=== PATIENT | female | born 1980 | race American Indian/Alaskan Native ===

== ENCOUNTER 2018-08-03 19:35 | Emergency (ER) | payer BC ==
--- NOTE | 2018-08-03 19:52 | Emergency Department Report ---
Blank Doc - Documentation Documentation: This is a 38-year-old female that presents with left lower pelvic pain. Denies any n/v. This initial assessment/diagnostic orders/clinical plan/treatment(s) is/are subject to change based on patient's health status, clinical progression and re- assessment by fellow clinical providers in the ED. Further treatment and workup at subsequent clinical providers discretion. Patient/guardians urged not to elope from the ED as their condition may be serious if not clinically assessed and managed. Initial orders include: 1- Patient sent to [facility] for further evaluation and treatment. 2- labs 3- UA
[2018-08-03 20:36] LABS: Bilirubin,Urine NEG (Negative); Blood,Urine NEG (Negative); Color,Urine Yellow (Yellow); Protein,Urine <15 mg/dL mg/dL (Negative); Urobilinogen,Urine < 2.0 mg/dL (<2.0); WBC,Urine < 1.0 /HPF (0.0-6.0)
[2018-08-03 20:56] LABS: Basophils # (Auto) 0.1 K/mm3 (0.0-0.1); Eosinophils # (Auto) 0.1 K/mm3 (0.0-0.4); Eosinophils % (Auto) 1.3 % (0.0-4.3); Hematocrit 33.7 % (30.3-42.9); Hemoglobin 11.1 gm/dl (10.1-14.3); Lymphocytes # (Auto) 2.5 K/mm3 (1.2-5.4); Lymphocytes % (Auto) 45.3 % (13.4-35.0); Mean Corpuscular HGB Conc 33 % (30-34); Mean Corpuscular Volume 77 fl (79-97); Monocytes # (Auto) 0.4 K/mm3 (0.0-0.8); Monocytes % (Auto) 7.4 % (0.0-7.3); Platelet Count 318 K/mm3 (140-440); Red Blood Count 4.36 M/mm3 (3.65-5.03); Red Cell Distribution Width 15.2 % (13.2-15.2)
[2018-08-03] MEDS ORDERED: ZOFRAN IM ONE (21:06)
[2018-08-03] MEDS ORDERED: MORPHINE IM ONE (21:06)
[2018-08-03 21:07] LABS: Alanine Aminotransferase 19 units/L (7-56); Albumin 4.5 g/dL (3.9-5); BUN/Creatinine Ratio 11; Blood Urea Nitrogen 9 mg/dL (7-17); Calcium 9.7 mg/dL (8.4-10.2); Hemolysis Index 7
[2018-08-03 21:12] LABS: Bilirubin,Direct < 0.2 mg/dL (0-0.2)
--- NOTE | 2018-08-03 23:17 | Ultrasound Report ---
PROCEDURE: US OB <= 14 WEEKS FETUS TECHNIQUE: Real-time transabdominal and transvaginal sonography of the uterus, placenta, amniotic fl uid, adnexa, and fetus was performed with image documentation. Measurements were obtained to determin e age/size. M-mode Doppler was used to document heartbeat. ADDITIONAL GESTATION: None. HISTORY: left pelvic pain COMPARISONS: None . FINDINGS: The uterus is enlarged measuring 13.8 x 6.9 x 8.9 cm. The endometrial pattern is normal measuring 9 m m. Is no evidence of an intrauterine . Multiple fibroids are identified within the uterine m yometrium. There are at least 3 large fibroid. One measures 33 x 26 x 39 mm. A second measures 30 x 3 1 x 29 mm. A third measures 32 x 28 x 27 mm. The ovaries are not identified on this study. There is no evidence of fluid in the lower pelvis. Ther e are a few small cysts identified within the cervix. The findings may indicate multiple etiologies including early or failure. The pat ient should have follow-up studies which could include serial beta-hCG levels and perhaps repeat ultr asound. IMPRESSION: Enlarged uterus with multiple fibroids identified within the myometrium. The fibroids measure up to 3 9 mm. There is no evidence of a gestational sac on this study. The ovaries are not seen on this exami nation. The findings may indicate early or failure. Follow-up studies should be entertain ed as discussed above. This document is electronically signed by Shelbie Grajeda DO., Aug 03 2018 11:15:28 PM ET
[2018-08-04] MEDS ORDERED: TYLENOL PO ONE (00:44)
[2018-08-04 00:52] VITALS: BP 139/87
--- NOTE | 2018-08-04 01:00 | Emergency Department Report ---
ED Female HPI - General Chief complaint: Abdominal Pain Stated complaint: LEFT SIDE PAIN Time Seen by Provider: 08/03/18 19:51 Source: patient Mode of arrival: Ambulatory Limitations: No Limitations - History of Present Illness Initial comments: 38-year-old female with a past medical history of hypertension and SVT presents to the hospital. No lower abdominal pain radiating to the back intermittently since yesterday. Pain was initially dull but now sharp and more severe today. Worse with palpation. No alleviating factors. Positive nausea without vomiting. Patient complains of urinary frequency but denies hematuria, dysuria, or vaginal bleeding. LMP June 29. It is the patient's third and she has 2 previous miscarriages and denies abortions or ectopic pregnancies. Pt is also on medication for rprolactinoma - Related Data Home Medications Medication Instructions Recorded Confirmed Last Taken Atenolol [Tenormin] 1 tab PO QDAY 08/08/13 08/08/13 Unknown hydroCHLOROthiazide [Hctz] 1 tab PO QDAY 08/08/13 08/08/13 08/07/13 Previous Rx's Medication Instructions Recorded Last Taken Type Cyclobenzaprine [Flexeril] 10 mg PO TID PRN #10 tablet 08/08/13 Unknown Rx Oxycodone HCl/Acetaminophen 1 each PO Q6HR PRN #20 tablet 08/08/13 Unknown Rx [Percocet 10-325 mg] Ondansetron [Zofran Odt] 4 mg PO Q8HR PRN #14 tab.rapdis 08/04/18 Unknown Rx Allergies Allergy/AdvReac Type Severity Reaction Status Date / Time cefuroxime [From Ceftin] Allergy Swelling Verified 08/03/18 19:39 ED Review of Systems ROS: Stated complaint: LEFT SIDE PAIN Other details as noted in HPI Comment: All other systems reviewed and negative ED Past Medical Hx - Past Medical History Hx Hypertension: Yes Additional medical history: SVT - Surgical History Additional Surgical History: myomectomy. dx lap. dx D & C - Social History Smoking Status: Never Smoker Substance Use Type: None - Medications Home Medications: Home Medications Medication Instructions Recorded Confirmed Last Taken Type Atenolol [Tenormin] 1 tab PO QDAY 08/08/14 08/08/13 Unknown History Cyclobenzaprine [Flexeril] 10 mg PO TID PRN #10 tablet 08/08/13 Unknown Rx Oxycodone HCl/Acetaminophen 1 each PO Q6HR PRN #20 tablet 08/08/13 Unknown Rx [Percocet 10-325 mg] hydroCHLOROthiazide [Hctz] 1 tab PO QDAY 08/08/13 08/08/13 08/07/13 History Ondansetron [Zofran Odt] 4 mg PO Q8HR PRN #14 tab.rapdis 08/04/18 Unknown Rx ED Physical Exam - General Limitations: No Limitations - Other Other exam information: General: No limitations, patient is alert in no acute distress Head exam: Atraumatic, normocephalic Eyes exam: Normal appearance ENT: Moist mucous membrane Neck exam: Normal inspection, full range of motion, no meningismus nontender Respiratory exam: Clear to auscultation bilateral, no wheezes, rales, crackles Cardiovascular: Normal rate and rhythm, normal heart sounds Abdomen: Soft, nondistended, left lower quadrant tenderness and suprapubic tenderness, with normal bowel sounds, no rebound, or guarding Extremity: Full range of motion normal inspection no deformity Back: Normal Inspection, full range of motion, no tenderness, no CVA tenderness Neurologic: Alert, oriented x3, cranial nerves intact, no motor or sensory deficit Psychiatric: normal affect, normal mood Skin: Warm, dry, intact ED Course Vital Signs 08/03/18 08/03/18 08/03/18 19:38 19:40 19:55 Temperature 97.9 F 97.9 F 97.9 F Pulse Rate 92 H 84 84 Respiratory 18 18 18 Rate Blood Pressure 148/104 148/104 Blood Pressure 148/104 [Right] O2 Sat by Pulse 95 97 97 Oximetry 08/03/18 08/03/18 08/04/18 21:25 21:55 00:51 Temperature 98.1 F Pulse Rate 69 Respiratory 18 18 15 Rate Blood Pressure Blood Pressure 139/87 [Right] O2 Sat by Pulse 100 Oximetry - Consultations Consultation #1: 08/04/18 01:03 case d/w Dr Pereira who agrees that pt will need repeat hcg in 2 days. ED Medical Decision Making - Lab Data Result diagrams: 08/03/18 20:23 08/03/18 20:23 Lab Results 08/03/18 08/03/18 08/03/18 Range/Units 20:11 20:23 20:23 WBC 5.5 (4.5-11.0) K/mm3 RBC 4.36 (3.65-5.03) M/mm3 Hgb 11.1 (10.1-14.3) gm/dl Hct 33.7 (30.3-42.9) % MCV 77 L (79-97) fl MCH 25 L (28-32) pg MCHC 33 (30-34) % RDW 15.2 (13.2-15.2) % Plt Count 318 (140-440) K/mm3 Lymph % (Auto) 45.3 H (13.4-35.0) % [place] % (Auto) 7.4 H (0.0-7.3) % Eos % (Auto) 1.3 (0.0-4.3) % Baso % (Auto) 1.0 (0.0-1.8) % Lymph # 2.5 (1.2-5.4) K/mm3 [place] # 0.4 (0.0-0.8) K/mm3 Eos # 0.1 (0.0-0.4) K/mm3 Baso # 0.1 (0.0-0.1) K/mm3 Seg Neutrophils % 45.0 (40.0-70.0) % Seg Neutrophils # 2.5 (1.8-7.7) K/mm3 Sodium 141 (137-145) mmol/L Potassium 4.2 (3.6-5.0) mmol/L Chloride 104.2 (98-107) mmol/L Carbon Dioxide 25 (22-30) mmol/L Anion Gap 16 mmol/L BUN 9 (7-17) mg/dL Creatinine 0.8 (0.7-1.2) mg/dL Estimated GFR > 60 ml/min BUN/Creatinine Ratio 11 % Glucose 141 H (65-100) mg/dL Calcium 9.7 (8.4-10.2) mg/dL Total Bilirubin 0.20 (0.1-1.2) mg/dL Direct Bilirubin < 0.2 (0-0.2) mg/dL Indirect Bilirubin 0.0 mg/dL AST 18 (5-40) units/L ALT 19 (7-56) units/L Alkaline Phosphatase 45 (35-129) units/L Total Protein 7.6 (6.3-8.2) g/dL Albumin 4.5 (3.9-5) g/dL Albumin/Globulin Ratio 1.5 % HCG, Quant (0-4) mIU/mL Urine Color Yellow (Yellow) Urine Turbidity Cloudy (Clear) Urine pH 5.0 (5.0-7.0) Ur Specific [place] 1.017 (1.003-1.030) Urine Protein <15 mg/dl (Negative) mg/dL Urine Glucose (UA) Neg (Negative) mg/dL Urine Ketones Neg (Negative) mg/dL Urine Blood Neg (Negative) Urine Nitrite Neg (Negative) Urine Bilirubin Neg (Negative) Urine Urobilinogen < 2.0 (<2.0) mg/dL Ur Leukocyte Esterase Neg (Negative) Urine WBC (Auto) < 1.0 (0.0-6.0) /HPF Urine RBC (Auto) 4.0 (0.0-6.0) /HPF U Epithel Cells (Auto) 13.0 (0-13.0) /HPF 05/20/19 Range/Units 20:23 WBC (4.5-11.0) K/mm3 RBC (3.65-5.03) M/mm3 Hgb (10.1-14.3) gm/dl Hct (30.3-42.9) % MCV (79-97) fl MCH (28-32) pg MCHC (30-34) % RDW (13.2-15.2) % Plt Count (140-440) K/mm3 Lymph % (Auto) (13.4-35.0) % [place] % (Auto) (0.0-7.3) % Eos % (Auto) (0.0-4.3) % Baso % (Auto) (0.0-1.8) % Lymph # (1.2-5.4) K/mm3 [place] # (0.0-0.8) K/mm3 Eos # (0.0-0.4) K/mm3 Baso # (0.0-0.1) K/mm3 Seg Neutrophils % (40.0-70.0) % Seg Neutrophils # (1.8-7.7) K/mm3 Sodium (137-145) mmol/L Potassium (3.6-5.0) mmol/L Chloride (98-107) mmol/L Carbon Dioxide (22-30) mmol/L Anion Gap mmol/L BUN (7-17) mg/dL Creatinine (0.7-1.2) mg/dL Estimated GFR ml/min BUN/Creatinine Ratio % Glucose (65-100) mg/dL Calcium (8.4-10.2) mg/dL Total Bilirubin (0.1-1.2) mg/dL Direct Bilirubin (0-0.2) mg/dL Indirect Bilirubin mg/dL AST (5-40) units/L ALT (7-56) units/L Alkaline Phosphatase (35-129) units/L Total Protein (6.3-8.2) g/dL Albumin (3.9-5) g/dL Albumin/Globulin Ratio % HCG, Quant 11.70 H (0-4) mIU/mL Urine Color (Yellow) Urine Turbidity (Clear) Urine pH (5.0-7.0) Ur Specific [place] (1.003-1.030) Urine Protein (Negative) mg/dL Urine Glucose (UA) (Negative) mg/dL Urine Ketones (Negative) mg/dL Urine Blood (Negative) Urine Nitrite (Negative) Urine Bilirubin (Negative) Urine Urobilinogen (<2.0) mg/dL Ur Leukocyte Esterase (Negative) Urine WBC (Auto) (0.0-6.0) /HPF Urine RBC (Auto) (0.0-6.0) /HPF U Epithel Cells (Auto) (0-13.0) /HPF - EKG Data -: EKG Interpreted by [place] EKG shows normal: sinus rhythm, axis (qrs 41), QRS complexes (qrsd 89), ST-T waves (no stemi/t wave) Rate: normal (85) - Radiology Data Radiology results: report reviewed PROCEDURE: US OB <= 14 WEEKS FETUS TECHNIQUE: Real-time transabdominal and transvaginal sonography of the uterus, placenta, amniotic fluid, adnexa, and fetus was performed with image documentation. Measurements were obtained to determine age/size. M-mode Doppler was used to document heartbeat. ADDITIONAL GESTATION: None. HISTORY: left pelvic pain COMPARISONS: None . FINDINGS: The uterus is enlarged measuring 13.8 x 6.9 x 8.9 cm. The endometrial pattern is normal measuring 9 mm. Is no evidence of an intrauterine . Multiple fibroids are identified within the uterine myometrium. There are at least 3 large fibroid. One measures 33 x 26 x 39 mm. A second measures 30 x 31 x 29 mm. A third measures 32 x 28 x 27 mm. The ovaries are not identified on this study. There is no evidence of fluid in the lower pelvis. There are a few small cysts identified within the cervix. The findings may indicate multiple etiologies including early or failure. The patient should have follow-up studies which could include serial beta-hCG levels and perhaps repeat ultrasound. IMPRESSION: Enlarged uterus with multiple fibroids identified within the myometrium. The fibroids measure up to 39 mm. There is no evidence of a gestational sac on this study. The ovaries are not seen on this examination. The findings may indicate early or failure. Follow-up studies should be entertained as discussed above. PROCEDURE: US OB TRANSVAGINAL TECHNIQUE: Real-time transabdominal and transvaginal sonography of the uterus, placenta, amniotic fluid, adnexa, and fetus was performed with image documentation. Measurements were obtained to determine age/size. M-mode Doppler was used to document heartbeat. ADDITIONAL GESTATION: None. HISTORY: left pelvic pain COMPARISONS: None . FINDINGS: The uterus is enlarged measuring 13.8 x 6.9 x 8.9 cm. The endometrial pattern is normal measuring 9 mm. Is no evidence of an intrauterine . Multiple fibroids are identified within the uterine myometrium. There are at least 3 large fibroid. One measures 33 x 26 x 39 mm. A second measures 30 x 31 x 29 mm. A third measures 32 x 28 x 27 mm. The ovaries are not identified on this study. There is no evidence of fluid in the lower pelvis. There are a few small cysts identified within the cervix. The findings may indicate multiple etiologies including early or failure. The patient should have follow-up studies which could include serial beta-hCG levels and perhaps repeat ultrasound. IMPRESSION: Enlarged uterus with multiple fibroids identified within the myometrium. The fibroids measure up to 39 mm. There is no evidence of a gestational sac on this study. The ovaries are not seen on this examination. The findings may indicate early or failure. Follow-up studies should be entertained as discussed above. - Medical Decision Making Patient did receive morphine, Zofran, and Tylenol in the ED. No signs of infection on labs or urine. Fibroids on ultrasound with a very low hCG level. Repeat in 2 days recommended. Tylenol when necessary pain. 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 ED Disposition Clinical Impression: Pelvic pain during , Fibroids Disposition: TO HOME OR SELFCARE Is pt being admited?: No Does the pt Need Aspirin: No Condition: Stable Instructions: (ED), Uterine Fibroids (ED) Additional Instructions: Take Tylenol as needed for pain and Zofran as needed for nausea. It is very important that you follow up in 2 days to have the blood work redrawn. Today urine hCG number is 11. This number should double in 2 days. If this level is decreased and then it is likely you're having a miscarriage. You may either follow up with the [facility]RARY CONSULTANT doctor provider or return to the emergency department. Please return if symptoms worsen as indicated by your discharge instructions. You have been provided a copy of the labs and ultrasound report from today's visit. Prescriptions: Ondansetron [Zofran Odt] 4 mg PO Q8HR PRN #14 tab.rapdis PRN Reason: Nausea And Vomiting Referrals: SADAF PEREIRA MD [Staff Physician] - 2-3 Days (2 days) Time of Disposition:
== END 2018-08-04 01:53 | disposition home or self-care (01) ==
LOC: ED 19:35
DX: O34.11 Maternal care for benign tumor of corpus uteri, first trimester (principal); R10.2 Pelvic and perineal pain; O16.1 Unspecified maternal hypertension, first trimester; Z88.8 Allergy status to other drugs, medicaments and biological substances; Z3A.01 Less than 8 weeks gestation of pregnancy
CPT/HCPCS: 36415; 76801; 76817; 80048; 80076; 81001; 84702; 85025; 93005; 93010; 96372; 99284; J2270; J2405

== ENCOUNTER 2018-08-05 04:39 | Emergency (ER) | payer BC ==
[2018-08-05 05:33] LABS: Basophils % (Auto) 0.3 % (0.0-1.8); Eosinophils # (Auto) 0.1 K/mm3 (0.0-0.4); Hematocrit 33.5 % (30.3-42.9); Hemoglobin 10.9 gm/dl (10.1-14.3); Lymphocytes # (Auto) 1.9 K/mm3 (1.2-5.4); Lymphocytes % (Auto) 32.4 % (13.4-35.0); Mean Corpuscular HGB Conc 33 % (30-34); Mean Corpuscular Volume 78 fl (79-97); Monocytes # (Auto) 0.5 K/mm3 (0.0-0.8); Monocytes % (Auto) 8.3 % (0.0-7.3); Platelet Count 300 K/mm3 (140-440); Red Blood Count 4.29 M/mm3 (3.65-5.03); Red Cell Distribution Width 15.4 % (13.2-15.2)
[2018-08-05] MEDS ORDERED: NORCO 5/325 PO ONE (06:42)
--- NOTE | 2018-08-05 06:45 | Emergency Department Report ---
HPI - General Chief Complaint: Vaginal Bleeding Time Seen by Provider: 08/05/18 06:27 - HPI HPI: Room 24 The patient is a 38-year-old female presenting with a chief complaint abdominal pain. The patient states for the past 3 days she is low abdominal pain and back pain. Patient was seen in the ED 2 days ago for the same and diagnosed with probable spontaneous . The patient was instructed to return in 48 hours for repeat labs. The patient states she developed some vaginal bleeding yesterday and has gone through approximately 3 pads today. Location: [See above] Duration: [See above] Quality: [See above] Severity:10/24 Modifying factors: [see above] Context: [see above] Mode of transportation: [not driving] ED Past Medical Hx - Past Medical History Previous Medical History?: Yes Hx Hypertension: Yes Hx Diabetes: Yes Hx Seizures: Yes Additional medical history: SVT - Surgical History Past Surgical History?: Yes Additional Surgical History: myomectomy. dx lap. dx D & C - Family History Family history: no significant - Social History Smoking Status: Never Smoker Substance Use Type: None (denies illicit drug use) - Medications Home Medications: Home Medications Medication Instructions Recorded Confirmed Last Taken Type Atenolol [Tenormin] 1 tab PO QDAY 08/08/13 08/08/13 Unknown History Cyclobenzaprine [Flexeril] 10 mg PO TID PRN #10 tablet 08/08/13 Unknown Rx Oxycodone HCl/Acetaminophen 1 each PO Q6HR PRN #20 tablet 08/08/13 Unknown Rx [Percocet 10-325 mg] hydroCHLOROthiazide [Hctz] 1 tab PO QDAY 08/08/13 08/08/13 08/07/13 History Ondansetron [Zofran Odt] 4 mg PO Q8HR PRN #14 tab.rapdis 08/04/18 Unknown Rx HYDROcodone/APAP 5-325 [[place] 1 - 2 each PO Q6HR PRN #10 tablet 08/05/18 U nknown Rx 5/325] Ibuprofen [Motrin 800 MG tab] 800 mg PO Q8HR PRN #20 tablet 08/05/18 Unknown Rx ED Review of Systems ROS: Stated complaint: ABD PAIN/VAGINAL BLEEDING Other details as noted in HPI Constitutional: no symptoms reported Eyes: denies: eye pain ENT: denies: throat pain Respiratory: no symptoms reported Cardiovascular: denies: chest pain Endocrine: no symptoms reported Gastrointestinal: abdominal pain Musculoskeletal: back pain Neurological: denies: headache Physical Exam - Physical Exam Vital Signs: Vital Signs 08/05/18 08/05/18 08/05/18 04:54 04:57 05:00 Temperature 98.0 F Pulse Rate 58 L 61 Respiratory 32 H 18 Rate Blood Pressure 148/93 O2 Sat by Pulse 100 100 Oximetry 08/05/18 08/05/18 08/05/18 05:16 05:26 05:30 Temperature Pulse Rate 53 L 63 Respiratory 22 20 18 Rate Blood Pressure 144/94 144/87 O2 Sat by Pulse 100 99 Oximetry 08/05/18 08/05/18 08/05/18 05:46 06:04 06:16 Temperature Pulse Rate 58 L 56 L 54 L Respiratory 11 L 15 14 Rate Blood Pressure 144/87 144/87 129/61 O2 Sat by Pulse 100 100 100 Oximetry Physical Exam: GENERAL: The patient is well-developed well-nourished female lying on stretcher not appearing to be in acute distress. [] HEENT: Normocephalic. Atraumatic. Extraocular motions are intact. Patient has moist mucous membranes. NECK: Supple. Trachea midline CHEST/LUNGS: Clear to auscultation. There is no respiratory distress noted. HEART/CARDIOVASCULAR: Regular. There is no tachycardia. There is no gallop rub or murmur. ABDOMEN: Abdomen is soft, with mild suprapubic discomfort. Patient has normal bowel sounds. There is no abdominal distention. There is no rebound or guarding SKIN: There is no rash. There is no edema. There is no diaphoresis. NEURO: The patient is awake, alert, and oriented. The patient is cooperative. The patient has no focal neurologic deficits. The patient has normal speech MUSCULOSKELETAL: There is no evidence of acute injury. ED Course Vital Signs 08/05/18 08/05/18 08/05/18 04:54 04:57 05:00 Temperature 98.0 F Pulse Rate 58 L 61 Respiratory 32 H 18 Rate Blood Pressure 148/93 O2 Sat by Pulse 100 100 Oximetry 08/05/18 08/05/18 08/05/18 05:16 05:26 05:30 Temperature Pulse Rate 53 L 63 Respiratory 22 20 18 Rate Blood Pressure 144/94 144/87 O2 Sat by Pulse 100 99 Oximetry 08/05/18 08/05/18 08/05/18 05:46 06:04 06:16 Temperature Pulse Rate 58 L 56 L 54 L Respiratory 11 L 15 14 Rate Blood Pressure 144/87 144/87 129/61 O2 Sat by Pulse 100 100 100 Oximetry ED Medical Decision Making - Lab Data Result diagrams: 08/05/18 05:14 Laboratory Tests 08/05/18 08/05/18 08/05/18 05:14 05:14 05:14 WBC 5.8 RBC 4.29 Hgb 10.9 Hct 33.5 MCV 78 L MCH 25 L MCHC 33 RDW 15.4 H Plt Count 300 Lymph % (Auto) 32.4 [place] % (Auto) 8.3 H Eos % (Auto) 2.0 Baso % (Auto) 0.3 Lymph # 1.9 [place] # 0.5 Eos # 0.1 Baso # 0.0 Seg Neutrophils % 57.0 Seg Neutrophils # 3.3 HCG, Qual Negative HCG, Quant 6.14 H Blood Type 08/05/18 05:14 WBC RBC Hgb Hct MCV MCH MCHC RDW Plt Count Lymph % (Auto) [place] % (Auto) Eos % (Auto) Baso % (Auto) Lymph # [place] # Eos # Baso # Seg Neutrophils % Seg Neutrophils # HCG, Qual HCG, Quant Blood Type O POSITIVE - Differential Diagnosis spontaneous Critical care attestation.: If time is entered above; I have spent that time in minutes in the direct care of this critically ill patient, excluding procedure time. ED Disposition Clinical Impression: Spontaneous Disposition: TO HOME OR SELFCARE Is pt being admited?: No Does the pt Need Aspirin: No Condition: Stable Instructions: Spontaneous Miscarriage (ED) Additional Instructions: Return to the emergency department immediately should you develop worsening symptoms, fever, inability to tolerate food or liquid or any other concerns. Prescriptions: Ibuprofen [Motrin 800 MG tab] 800 mg PO Q8HR PRN #20 tablet PRN Reason: Pain, Moderate (4-6) HYDROcodone/APAP 5-325 [[place] 5/325] 1 - 2 each PO Q6HR PRN #10 tablet PRN Reason: Pain Referrals: PRIMARY CAREMD [Primary Care Provider] - 3-5 Days JOSE ARMENDARIZ MD [Staff Physician] - 2-3 Days Time of Disposition: :09
[2018-08-05 09:11] VITALS: BP 149/85
== END 2018-08-05 09:10 | disposition home or self-care (01) ==
LOC: ED 04:39
DX: O03.9 Complete or unspecified spontaneous abortion without complication (principal); O16.9 Unspecified maternal hypertension, unspecified trimester; O24.919 Unspecified diabetes mellitus in pregnancy, unspecified trimester; Z79.899 Other long term (current) drug therapy; Z88.1 Allergy status to other antibiotic agents
CPT/HCPCS: 36415; 84702; 84703; 85025; 86900; 86901; 99283